=== PATIENT | male | born 1985 | race Caucasian/White ===

== ENCOUNTER 2016-07-24 13:54 | Emergency (ER) | payer SELFPAY ==
[2016-07-24 14:24] VITALS: BMI 29.2
[2016-07-24 14:27] VITALS: TEMP 98.4; O2SAT 99
--- NOTE | 2016-07-24 15:46 | C.PDOC ---
History Of Present Illness Pt has been sweating sporadically while sleeping at night. He states he wraps himself with a thick comforter to go to sleep. He denies any other symptoms. However, when he looked up "night sweats" on the internet he was scared because of the the potential diagnoses. Time Seen by Provider: 07/24/16 15:31 Chief Complaint (Nursing): Medical Clearance History Per: Patient Onset/Duration Of Symptoms: Days (about 6 months) Current Symptoms Are (Timing): Still Present Severity: Moderate Recent travel outside of the [place]: No Additional History Per: Prior Records Past Medical History Reviewed: Historical Data, Nursing Documentation, Vital Signs Vital Signs: Last Vital Signs Temp 98.4 F 07/24/16 14:23 Pulse 69 07/24/16 14:23 Resp 16 07/24/16 14:23 BP 145/92 H 07/24/16 14:23 Pulse Ox 99 07/24/16 14:23 - Medical History PMH: No Chronic Diseases Surgical History: No Surg Hx Family History: States: Unknown Family Hx - Social History Hx Alcohol Use: No Hx Substance Use: No - Immunization History Hx Tetanus Toxoid Vaccination: No Hx Influenza Vaccination: No Hx Pneumococcal Vaccination: No Review Of Systems Except As Marked, All Systems Reviewed And Found Negative. Constitutional: Positive for: Sweats. Negative for: Fever, Chills, Weakness Cardiovascular: Negative for: Chest Pain Respiratory: Negative for: Cough, Shortness of Breath, Hemoptysis Gastrointestinal: Negative for: Vomiting, Abdominal Pain, Diarrhea Genitourinary: Negative for: Dysuria Musculoskeletal: Negative for: Neck Pain Skin: Negative for: Rash Neurological: Negative for: Weakness, Numbness, Seizures, Altered Mental Status , Headache Physical Exam - Physical Exam Appears: Non-toxic, No Acute Distress Skin: Normal Color, Warm, Dry, No Rash Head: Atraumatic, Normacephalic Eye(s): bilateral: Normal Inspection, PERRL, EOMI Neck: Normal ROM, Supple Cardiovascular: Rhythm Regular Respiratory: Normal Breath Sounds, No Accessory Muscle Use Gastrointestinal/Abdominal: Soft, No Tenderness Back: No CVA Tenderness Extremity: Normal ROM, No Pedal Edema, No Calf Tenderness Neurological/Psych: Oriented x3, Normal Speech, Normal Cognition, Normal Motor, Normal Sensation ED Course And Treatment O2 Sat by Pulse Oximetry: 99 Pulse Ox Interpretation: Normal Disposition Counseled Patient/Family Regarding: Diagnosis, Need For Followup - Disposition Referrals: [facility] [Outside] Disposition: HOME/ ROUTINE Disposition Time: 15:47 Condition: STABLE Additional Instructions: Follow up with a primary doctor or in the clinic for further evaluation. Do not sleep with a heavy cover. Return to the ER if you develop fever, cough, worsening of symptoms or if you have any other concerns. Forms: General Discharge Instructions - Clinical Impression Clinical Impression: Night sweats
[2016-07-24 16:07] VITALS: BP 128/88; PULSE 66; RESP 18
== END 2016-07-24 16:07 | disposition home or self-care (01) ==
LOC: C.ER 13:54
DX: R61 Generalized hyperhidrosis (principal)